=== PATIENT | female | born 1950 | race Two or more races ===

== ENCOUNTER 2024-10-30 14:57 | Outpatient (CLI) | payer OTHER ==
[~2024-10-30 14:57] MED LIST: BACTRIM DS TABL1 TAB PO; BENICAR40 MG; GLUMETZA1000 MG; INTESTINEX1 CA1 PO; LIPITOR40 MG
[2024-10-30 15:36] LABS: CREATININE SERUM 1.15 mg/dL (0.55-1.02)
== END 2024-10-30 15:03 | disposition home or self-care (01) ==
LOC: LAB 14:57
PROVIDERS: ATTEND Radiology Diagnostic Radiology
DX: C50.911 Malignant neoplasm of unspecified site of right female breast (principal)

== ENCOUNTER 2024-11-06 09:45 | Outpatient (CLI) | payer OTHER | END 2024-11-06 09:56 | disposition home or self-care (01) | LOC: MRI 09:45 | PROVIDERS: ATTEND Internal Medicine Endocrinology, Diabetes & Metabolism | DX: C50.911 Malignant neoplasm of unspecified site of right female breast (principal); R22.2 Localized swelling, mass and lump, trunk; I70.213 Atherosclerosis of native arteries of extremities with intermittent claudication, bilateral legs; E55.9 Vitamin D deficiency, unspecified; E78.41 Elevated Lipoprotein(a) | CPT/HCPCS: 73223; Q9965; 73221 ==

== ENCOUNTER 2024-11-08 10:47 | Outpatient (CLI) | payer OTHER | END 2024-11-08 10:48 | disposition home or self-care (01) | LOC: NUCLEAR 10:47 | PROVIDERS: ATTEND Internal Medicine Endocrinology, Diabetes & Metabolism | DX: I70.213 Atherosclerosis of native arteries of extremities with intermittent claudication, bilateral legs (principal); I77.9 Disorder of arteries and arterioles, unspecified; I87.2 Venous insufficiency (chronic) (peripheral) ==

== ENCOUNTER 2024-11-13 10:49 | Outpatient (CLI) | payer OTHER | END 2024-11-13 10:50 | disposition home or self-care (01) | LOC: NUCLEAR 10:49 | PROVIDERS: ATTEND Internal Medicine Endocrinology, Diabetes & Metabolism | DX: I70.213 Atherosclerosis of native arteries of extremities with intermittent claudication, bilateral legs (principal) ==